=== PATIENT | male | born 1970 | race Caucasian/White ===

== ENCOUNTER → 2016-07-29 | Outpatient (CLI) | payer BC | LOC: LAB.O 13:11 | PROVIDERS: ATTEND Internal Medicine Nephrology | DX: N18.4 Chronic kidney disease, stage 4 (severe) (principal); N17.9 Acute kidney failure, unspecified ==

== ENCOUNTER → 2016-10-04 | Outpatient (CLI) | payer BC | END | disposition home or self-care (01) | LOC: GMAJ 16:15 | PROVIDERS: ATTEND Family Medicine | DX: N18.3 Chronic kidney disease, stage 3 (moderate) (principal) ==

== ENCOUNTER → 2016-10-07 | Outpatient (CLI) | payer OTHER ==
--- NOTE | 2016-10-07 15:30 | MRI ---
EXAM DESCRIPTION: Cervical Spine CLINICAL HISTORY: 46 years, Male, RADICULOPATHY COMPARISON: None TECHNIQUE: Multiplanar multi sequence images of the cervical spine were obtained without gadolinium contrast. FINDINGS: There is loss of physiologic cervical lordosis. No vertebral body fracture or subluxation. Discogenic endplate signal changes are noted at several levels, worse at C5-6. Alignment of the craniocervical junction is anatomic, and visualized portions of the brainstem and spinal cord are unremarkable. [The paraspinal soft tissues are unremarkable. There is disc desiccation throughout the cervical spine.] At C2-3, there is no disc bulging or facet joint degeneration. At C3-4, the intervertebral disc and facet joints are unremarkable. At C4-5, there is no disc bulging or facet joint degeneration. At C5-6, there is broad-based posterior disco-osteophytic ridging with left-sided uncovertebral joint hypertrophy resulting in mild to moderate central canal and moderate left-sided neuroforaminal stenosis. At C6-7, there is broad-based posterior disco-osteophytic ridging with bilateral vertebral joint hypertrophy resulting in mild to moderate central canal and moderate bilateral neuroforaminal stenosis. At C7-T1, there is no disc bulging or facet joint degeneration. IMPRESSION: Broad-based posterior disc bulging and uncovertebral joint hypertrophy at C5-6 and C6-7 resulting in central canal and neuroforaminal stenosis as described above. Electronically signed by: Zachary Melara MD 10/07/2016 3:29 PM CDT
== END | disposition home or self-care (01) ==
LOC: MRI 10:35
PROVIDERS: ATTEND Physical Medicine & Rehabilitation Pain Medicine
DX: M48.02 Spinal stenosis, cervical region (principal)